=== PATIENT | female | born 1995 | race Caucasian/White ===

== ENCOUNTER 2020-08-26 23:14 | Emergency (ER) | payer BC, OTHER ==
[2020-08-27] MEDS ORDERED: Acetaminophen 500 MG TAB ONE (00:17)
[2020-08-27 00:25] LABS: Bilirubin Negative (Negative); Blood, Urine Negative (Negative); Clarity Clear (Clear); Glucose, Urine (Dipstick) Normal (Negative); Ketone, Urine Negative (Negative); Leukocyte Negative Leu/uL (Negative); Nitrite Negative (Negative); Protein, Urine (Dipstick) Negative (Neg-Trace); Urobilinogen Normal mg/dL (Less than 2)
[2020-08-27 00:39] LABS: Pregnancy Test - Urine (BHCG) Negative (Negative); Pregu Control Background? CLEAR/WHITE (CLR/WHITE); Pregu Control Bar Appear? YES (CONTROL BAR)
== END 2020-08-27 01:37 | disposition home or self-care (01) ==
LOC: ERS 23:14
DX: R10.2 Pelvic and perineal pain (principal)
CPT/HCPCS: 81003; 81025; 99284